=== PATIENT | female | born 1960 | race Caucasian/White ===

== ENCOUNTER 2023-08-03 16:38 | Emergency (ER) | payer OTHER, SELFPAY ==
--- NOTE | ~2023-08-03 | XR_ITS ---
EXAMINATION: XR LUMBOSACRAL SPINE CLINICAL INFORMATION: Low back pain COMPARISON: None available. TECHNIQUE: Three views of the lumbosacral spine. FINDINGS: There is normal lumbar lordosis. The vertebral heights and alignment is normal. There is no visible acute fracture, dislocation or subluxation seen. SI joints are symmetrical and normal. XR/XR lumbar spine 2-3V IMPRESSION: Unremarkable lumbar spine examination.
[2023-08-03 17:10] VITALS: BP 108/48; BP 114/70; PULSE 72; PULSE 81; RESP 16; TEMP 36.8; O2SAT 95; O2SAT 97; BMI 21.7
--- NOTE | 2023-08-03 17:15 | PC.NURSE ---
pt is alert and oriented, skin pwd, respirations even and unlabored, pt reports having chronic lower back pain for years, around 0400 woke up in sever pain that radiates down to her lower extremities and hips, feels like she is in a vase, also states unable to urinate since 1200, only few drops- denies pain with urination.
--- NOTE | 2023-08-03 18:11 | ED_ITS ---
HPI - General Adult General Chief complaint: Back Pain/Injury Stated complaint: lower back pain,urinary retention Time Seen by Provider: 08/03/23 17:00 Source: patient, RN notes reviewed and old records reviewed Mode of arrival: EMS Limitations: no limitations History of Present Illness HPI narrative: 62-year-old female with past medical history significant for complex regional pain syndrome, chronic back pain followed in [facility] presents for evaluation of back pain. Patient reports that [place] but denies any injury, heavy lifting or twisting. She reports that she woke up at 4:00 a.m. with worsening back pain reports that she was unable to move due to the pain She reports around 12 noon she tried to go to the bathroom and she was able to but ?only a little bit came out. ? She spoke to her therapist today who then had a pull up hand service evaluate the patient and due to the back pain and reported retention, it was recommended the patient present to the ER. The patient continues to complain of 8/10 pain. The pain is in her lower left center of her back She states she was again able to pee a little bit before coming to the ER Denies any fevers, chills Denies any history of spinal surgery Related Data Previous Rx's Medication Instructions Recorded dexamethasone 4 mg tablet 4 mg PO BID #6 tabs 08/03/23 Allergies Allergy/AdvReac Type Severity Reaction Status Date / Time Penicillins [PENICILLINS] Allergy Unknown Hives Verified 08/03/23 17:15 Review of Systems 2 Constitutional: Constitutional: Denies body ache(s), Denies chills, Denies fever(s), Denies headache(s) and Denies weakness Eyes: Eyes: Denies blurry vision ENT: Denies headache(s) and Denies sore throat Cardiovascular: Cardiovascular: Denies chest pain and Denies dyspnea Respiratory: Respiratory: Denies cough and Denies dyspnea Gastrointestinal: Gastrointestinal: Denies abdominal pain Musculoskeletal: Musculoskeletal: Reports back pain and Reports radiating pain into limb Integumentary/Breasts: Skin/Breast: Denies rash Neurologic: Denies headache(s) and Denies weakness Comments: Reports decreased urination PMFSH Social History Social History Smoked in Last 30 Days: No Use of substances other than those prescribed or required for medical reasons: Yes Substance Use Type: Marijuana Substance Use Frequency: Occasionally Advance Directives: No Advance Directives Information Provided: No Physical Exam ED Vital Signs: Vital Signs - 24 hr 08/03/23 17:10 08/03/23 18:25 08/03/23 20:00 Temperature 98.3 F 97.6 F Pulse Rate 72 56 70 Respiratory Rate 16 18 16 Blood Pressure 114/70 118/68 97/56 L Pulse Oximetry 95 98 96 Oxygen Delivery Method Room Air Room Air Room Air BMI result Body Mass Index 21.7 Course Reevaluation(s) Reevaluation #1: Patient reports feeling better, she is able to ambulate to the commode and give a urine sample without difficulty. She would complain of pain, her UA did not show signs of infection. She has given a dose of dexamethasone due to chronic back pain. We will give her a short course this to help with radiculopathy. The patient will resume her home narcotics and follow-up with her outpatient providers Time: 23:39 Medications Administered Discontinued Medications Generic Name Dose Route Start Last Admin Trade Name Ezekiel PRN Reason Stop Dose Admin Dexamethasone Sodium Phosphate 4 mg 08/03/23 21:58 08/03/23 22:04 Dexamethasone Sod Phosphate 4 Mg/Ml Vial IVPUSH 08/03/23 21:59 4 mg ONCE ONE Administration Morphine Sulfate 4 mg 08/03/23 17:39 08/03/23 18:19 Morphine Sulfate 4 Mg/Ml Cartridge IVPUSH 08/03/23 17:40 4 mg ONCE ONE Administration Protocol Ondansetron HCl 4 mg 08/03/23 17:39 08/03/23 18:19 Ondansetron Hcl 4 Mg/2 Ml Vial IVPUSH 08/03/23 17:40 4 mg ONCE ONE Administration Medical Decision Making Medical Decision Making [facility] Narrative: 62-year-old female presents for evaluation of acute on chronic back pain. She denies any specific injury, she has tenderness in the left lumbar paraspinous region. Patient has slightly reduced strength to lower extremities with weak effort. Reflexes remain intact. The patient appears quite comfortable, bladder scan had 208 cc of urine in the bladder. It seems the patient has little urine rather than true urinary retention. I have a low suspicion for cauda equina at this time. Plan for x-ray, labs, UA and will medicate the patient went morphine IV. Differential Diagnosis Differential Diagnoses: The differential diagnosis associated with the presentation includes Acute on chronic back pain Radiculopathy Sciatica Cauda equina syndrome less likely Spinal abscess less likely Lab Data MDM Lab Attestation statement: I reviewed the patient's lab results. 08/03/23 18:13 08/03/23 18:13 Labs: Lab Results 08/03/23 08/03/23 Range/Units 18:13 21:23 WBC 3.6 L (4.8-10.8) X10*3/uL RBC 3.60 L (4.20-5.50) X10*6/uL Hgb 11.3 L (12.0-16.0) g/dl Hct 34.5 L (37.0-47.0) % MCV 95.8 (80.0-98.0) fL MCH 31.4 (27.0-33.0) pg MCHC 32.8 (31.0-35.0) g/dl RDW 12.6 (11.0-16.0) % Plt Count 290 (160-400) X10*3/uL MPV 9.9 (9.4-12.3) fL Immature Gran % (Auto) 0.8 H (0.0-0.4) % Neut % (Auto) 38.9 L (45-73) % Lymph % (Auto) 41.1 H (20-40) % [place] % (Auto) 10.3 (2-11) % Eos % (Auto) 7.8 H (0-4) % Baso % (Auto) 1.1 (0-2) % Lymph # (Auto) 1.5 (1.2-4.9) X10*3/uL [place] # (Auto) 0.4 (0.1-1.2) X10*3/uL Eos # (Auto) 0.3 (0.0-0.4) X10*3/uL Baso # (Auto) 0.0 (0.0-0.2) X10*3/uL Abs Immat Gran (auto) 0.03 (0.00-0.03) X10*3/uL Absolute Neuts (auto) 1.4 L (2.0-8.3) x10*3/uL Absolute Nucleated RBC 0.000 (0.0-0.012) X10*3/uL Nucleated RBC % (auto) 0.0 (0.0-0.2) /100WBC ESR 12 (0-20) MM/HR Sodium 139 (135-145) mmol/L Potassium 4.1 (3.3-5.1) mmol/L Chloride 103 (96-108) mmol/L Carbon Dioxide 27 (22-29) mmol/L Anion Gap 13 (12-20) BUN 6 L (9-16) mg/dL Creatinine 0.81 (0.5-1.4) mg/dL Estim Creat Clear Calc 70.7 Estimated GFR > 60 Random Glucose 90 (60-115) mg/dL Calcium 8.6 (8.4-10.2) mg/dL Total Bilirubin 0.3 (0.0-1.0) mg/dL AST 24 (5-31) U/L ALT 13 (0-31) U/L Alkaline Phosphatase 52 (39-117) U/L C-Reactive Protein 0.11 (< or = 0.50) mg/dL Total Protein 6.1 L (6.5-8.0) g/dL Albumin 4.0 (3.5-5.0) g/dL Lipase 14 (8-78) U/L Urine Color Yellow Urine Appearance Cloudy Urine pH 7.0 (5.0-9.0) Ur Specific [place] 1.010 (1.005-1.025) Urine Protein Negative (Neg-Trace) mg/dL Urine Glucose (UA) Negative (Negative) mg/dL Urine Ketones Negative (Negative) mg/dL Urine Blood Negative (Negative) Urine Nitrite Negative (Negative) Ur Leukocyte Esterase Trace H (Negative) Urine RBC 0-2 (0-2) /HPF Urine WBC 0-5 (0-5) /HPF Ur Squamous Epith Cells 0-2 (0-2) /HPF Urine Bacteria None Seen (None Seen) Hyaline Casts 0-2 (0-2) /LPF Discharge Plan Discharge Clinical Impression: Acute exacerbation of chronic low back pain Patient Disposition: Home, Self-Care Instructions: Acute Low Back Pain (ED) Additional Instructions: Take all of your home medications as directed. Take dexamethasone twice daily for the next 3 days Call your specialist tomorrow morning to schedule follow-up You would likely benefit from an outpatient MRI Return for new or worsening symptoms Prescriptions: New dexamethasone 4 mg tablet 4 mg PO BID Qty: 6 0RF
[2023-08-03 18:18] LABS: MANUAL DIFF FLAG NO
[2023-08-03] MEDS: Morphine Sulfate 4 MG/ML CARTRIDGE IVPUSH (18:19)
[2023-08-03] MEDS: ondansetron HCL 4 MG/2 ML VIAL IVPUSH (18:19)
[2023-08-03 18:25] VITALS: BP 118/68; PULSE 56; RESP 18; O2SAT 98
[2023-08-03 18:33] LABS: C Reactive Protein 0.11 mg/dL (< or = 0.50)
[2023-08-03 18:36] LABS: Alanine Aminotransferase 13 U/L (0-31); Alkaline Phosphatase 52 U/L (39-117); Anion Gap 13 (12-20); Aspartate Amino Transferase 24 U/L (5-31); Bilirubin Total 0.3 mg/dL (0.0-1.0); Blood Urea Nitrogen 6 mg/dL (9-16); Calcium 8.6 mg/dL (8.4-10.2); Carbon Dioxide 27 mmol/L (22-29); Chloride 103 mmol/L (96-108); Creatinine Clr Calc Pharmacy 70.7; Estimated Glomerular Filt Rate > 60; Glucose Random 90 mg/dL (60-115); Lipase 14 U/L (8-78); Potassium 4.1 mmol/L (3.3-5.1); Sodium 139 mmol/L (135-145); Total Protein 6.1 g/dL (6.5-8.0)
[2023-08-03 19:31] LABS: Basophils Percent Auto 1.1 % (0-2); Eosinophils Absolute Auto 0.3 X10*3/uL (0.0-0.4); Eosinophils Percent Auto 7.8 % (0-4); Hematocrit 34.5 % (37.0-47.0); Hemoglobin 11.3 g/dl (12.0-16.0); Imm Gran Abs Auto 0.03 X10*3/uL (0.00-0.03); Imm Gran Pct Auto 0.8 % (0.0-0.4); Lymphocytes Absolute Auto 1.5 X10*3/uL (1.2-4.9); Lymphocytes Percent Auto 41.1 % (20-40); Mean Corpuscular HGB Conc 32.8 g/dl (31.0-35.0); Mean Corpuscular Hemoglobin 31.4 pg (27.0-33.0); Mean Corpuscular Volume 95.8 fL (80.0-98.0); Mean Platelet Volume 9.9 fL (9.4-12.3); Monocytes Absolute Auto 0.4 X10*3/uL (0.1-1.2); Monocytes Percent Auto 10.3 % (2-11); Neutrophils Absolute Auto 1.4 x10*3/uL (2.0-8.3); Neutrophils Percent Auto 38.9 % (45-73); Platelet Count 290 X10*3/uL (160-400); Red Cell Distribution Width 12.6 % (11.0-16.0); White Blood Count 3.6 X10*3/uL (4.8-10.8)
--- NOTE | 2023-08-03 19:43 | PC.NURSE ---
Assumed care of pt at 19:00. PT reports some relief with morphine, pain now 5/10. Patient laying in bed reading book at this time. Plan of care ongoing.
[2023-08-03 20:00] VITALS: BP 97/56; PULSE 70; RESP 16; TEMP 36.4; O2SAT 96
[2023-08-03 20:05] LABS: Erythrocyte Sedimentation Rate 12 MM/HR (0-20)
[2023-08-03 21:54] LABS: Appearance Urine Cloudy; Color Urine Yellow; Glucose Urine UA Negative (Negative); Leukocyte Esterase Urine Trace (Negative); Nitrite Urine Negative (Negative); UMIC TRIGGER UACC YES; Urine Blood Negative (Negative); Urine Ketones Negative (Negative); Urine Protein Negative (Neg-Trace)
[2023-08-03 21:59] LABS: Bacteria Urine None Seen (None Seen); Hyaline Casts Urine 0-2 /LPF (0-2); RBC Urine 0-2 /HPF (0-2); Squamous Epithelial Cell Urine 0-2 /HPF (0-2); WBC Urine 0-5 /HPF (0-5)
[2023-08-03] MEDS: dexAMETHasone sod phosphate 4 MG/ML VIAL IVPUSH (22:04)
[2023-08-04] MEDS: Morphine Sulfate 4 MG/ML CARTRIDGE IVPUSH (00:32)
[2023-08-04 02:09] VITALS: BP 132/69; PULSE 88; RESP 16; TEMP 36.6
== END 2023-08-04 02:10 | disposition home or self-care (01) ==
PROVIDERS: Physician Assistant; Emergency Provider Emergency Medicine
DX: G89.29 Other chronic pain (principal); M54.50 Low back pain, unspecified; R33.9 Retention of urine, unspecified; J45.909 Unspecified asthma, uncomplicated; Z88.0 Allergy status to penicillin
CPT/HCPCS: 36415; 51798; 72100; 80053; 81001; 83690; 85025; 85652; 86140; 96374; 96375; 96376; 99284; 99285; J1100; J2270; J2405